=== PATIENT | female | born 1950 | race Caucasian/White ===

== ENCOUNTER → 2016-05-02 | Outpatient (CLI) | payer OTHER ==
--- NOTE | 2016-05-02 14:02 | CT ---
CT chest without contrast. Indication screening for lung cancer, history of smoking. Technique contiguous helical axial scanning was performed through the chest. Repeat imaging was perfo rmed in the prone position and with inspiration and expiration. Dose reduction technique was performe d. FINDINGS: The right lung is clear. At the left apex there is a 2 mm nodule with Hounsfield unit densi ties averaging 450 consistent with a calcified granuloma. There is a small area of triangular scarrin g along the subpleural cardiac border in the lingula. This is a 3 mm area of ground-glass opacity. Al ternatively this may be an area of parenchymal scarring. Moderate calcification of the coronary arter ies. Aorta and pulmonary vasculature are unremarkable. Coronary artery calcifications present on this nongated study. No evidence of air trapping. The liver, spleen, pancreas, adrenals, and visualized kidneys are unremarkable. 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 Impression: 1. Two areas of parenchymal abnormality. One is 2 mm and the density is consistent with a granuloma. The second is 3 mm in the left lingula and is likely an area of parenchymal scarring. Based on its si ze of less than 4 mm the patient is low risk for lung cancer and no follow-up is needed; and if the p atient is high risk for lung cancer a follow-up is recommended at 12 months. 2. Coronary artery calcification noted on a nongated study A Follow-Up Required message has been communicated to Gaurang Nova DO via the [employer] Critical Result system on 05/02/2016 11:48, Message ID [id number].
--- NOTE | 2016-05-02 19:35 | MA ---
Screening Digital Mammogram with tomosynthesis Clinical Indications: Routine screening. Technique: Standard cephalocaudal and tomosynthesis mediolateral oblique projections are obtained. This examination is processed by the [employer] computer-aided detection system. Comparison: April 14, 2015, April 10, 2014, April 25, 2012 Breast density: 2; 25 to 50%. Findings: CAD was reviewed. No suspicious findings are identified. Impression: Negative mammogram. BI-RADS 1. Recommendation: Routine screening is recommended in one year. [facility] will send a result letter to the patient. Negative mammography should not preclude additional workup of a clinically suspicious finding. The patient's information is entered into a reminder system with a target due date for her next mammo gram.
== END ==
LOC: FIMAGING 09:38
DX: Z12.31 Encounter for screening mammogram for malignant neoplasm of breast (principal); Z12.2 Encounter for screening for malignant neoplasm of respiratory organs
CPT/HCPCS: G0202

== ENCOUNTER → 2017-02-20 | Outpatient (CLI) | payer OTHER | LOC: FIMAGING 09:41 | PROVIDERS: ATTEND Family Medicine | DX: R91.1 Solitary pulmonary nodule (principal); Z87.891 Personal history of nicotine dependence ==

== ENCOUNTER → 2017-05-21 | Outpatient (CLI) | payer OTHER | LOC: FIMAGING 10:22 | PROVIDERS: ATTEND Family Medicine | DX: Z12.31 Encounter for screening mammogram for malignant neoplasm of breast (principal) ==

== ENCOUNTER → 2017-07-30 | Outpatient (CLI) | payer OTHER | LOC: BMCIMAGING 08:34 | PROVIDERS: ATTEND Family Medicine | DX: Z13.6 Encounter for screening for cardiovascular disorders (principal); E78.5 Hyperlipidemia, unspecified; I10 Essential (primary) hypertension; Z86.79 Personal history of other diseases of the circulatory system ==

== ENCOUNTER → 2017-07-31 | Outpatient (CLI) | payer OTHER | LOC: GIMAGING 16:46 | PROVIDERS: ATTEND Family Medicine | DX: R07.81 Pleurodynia (principal) | CPT/HCPCS: 71101-PO ==

== ENCOUNTER → 2017-09-06 | Outpatient (CLI) | payer OTHER | LOC: BHFA 08:30 | PROVIDERS: ATTEND Internal Medicine Cardiovascular Disease | DX: R06.02 Shortness of breath (principal); R55 Syncope and collapse | CPT/HCPCS: 78452; 93017; 93306; A9500 ==

== ENCOUNTER → 2018-07-08 | Outpatient (CLI) | payer OTHER | LOC: GIMAGING 09:24 ==

== ENCOUNTER → 2018-07-15 | Outpatient (CLI) | payer OTHER | LOC: FIMAGING 13:56 | PROVIDERS: ATTEND Family Medicine | DX: Z12.31 Encounter for screening mammogram for malignant neoplasm of breast (principal) ==

== ENCOUNTER → 2018-07-16 | Outpatient (CLI) | payer OTHER | LOC: FIMAGING 08:22 | PROVIDERS: ATTEND Family Medicine | DX: M79.662 Pain in left lower leg (principal); M79.672 Pain in left foot; M79.602 Pain in left arm; Z96.652 Presence of left artificial knee joint ==

== ENCOUNTER → 2018-09-04 | Outpatient (CLI) | payer OTHER ==
[~2018-09-04] MED LIST: IOPAMIDOL (ISOVUE-300) 100 ML BTL ONE
== END ==
LOC: FIMAGING 12:35
PROVIDERS: ATTEND Physician Assistant
DX: K59.00 Constipation, unspecified (principal); I70.0 Atherosclerosis of aorta; K44.9 Diaphragmatic hernia without obstruction or gangrene
CPT/HCPCS: 74177; Q9967; 82565-PO